=== PATIENT | male | born 1990 | race Caucasian/White ===

== ENCOUNTER 2024-05-03 15:18 | Emergency (ER) | payer MEDICAID, OTHER ==
[~2024-05-03] VITALS: Ht 182.9 cm; Wt 91.9 kg
[~2024-05-03 15:18] MED LIST: [UNRECOGNIZED DRUG - CODE] PO
[2024-05-03 15:29] VITALS: BP 114/62; PULSE 54; RESP 16; TEMP 98.7; O2SAT 99
[2024-05-03 16:33] VITALS: O2SAT 99
[2024-05-03] MEDS: KETOROLAC 30 MG/ML VIAL IVP ONE (16:35)
[2024-05-03 17:04] LABS: BASOPHILS # (AUTO) 0.1 K/uL (0.00-0.22); BASOPHILS % (AUTO) 0.8 % (0.0-2.0); EOSINOPHILS # (AUTO) 0.4 K/uL (0-0.4); EOSINOPHILS % (AUTO) 5.7 % (0.0-4.0); HEMATOCRIT 44.3 % (36-52); LYMPHOCYTES # (AUTO) 2.2 K/uL (2.0-11.5); LYMPHOCYTES % (AUTO) 34.5 % (20.5-51.1); MEAN CORPUSCULAR HEMOGLOBIN 31 pg (27-31); MEAN CORPUSCULAR HGB CONC 34 g/dL (33-37); MEAN CORPUSCULAR VOLUME 90.4 fL (80-94); MONOCYTES # (AUTO) 0.7 K/uL (0.8-1.0); MONOCYTES % (AUTO) 11.4 % (1.7-9.3); NEUTROPHILS % (AUTO) 47.6 % (42.2-75.2); PLATELET COUNT (AUTO) 329 K/uL (140-450); RED CELL DISTRIBUTION WIDTH 13.4 % (11.6-13.7); WHITE BLOOD COUNT (AUTO) 6.4 K/uL (4.8-10.8)
[2024-05-03 17:13] LABS: APPEARANCE,URINE CLEAR (CLEAR); BILIRUBIN,URINE NEGATIVE (NEGATIVE); BLOOD, URINE NEGATIVE (NEGATIVE); COLOR,URINE YELLOW (YELLOW); LEUKOCYTE ESTERASE ,URINE NEGATIVE (NEGATIVE); NITRITE, URINE NEGATIVE (NEGATIVE); PROTEIN,URINE NEGATIVE (NEGATIVE); UGLUCOSE NEGATIVE (NEGATIVE); UROBILINOGEN,URINE 0.2 EU/dL (0.2 - 1)
[2024-05-03 17:17] LABS: ANION GAP 10.1 (8-16); CALCIUM 8.9 mg/dL (8.5-10.1); CARBON DIOXIDE 30.8 mmol/L (21-32); CREATININE 1.2 mg/dL (0.6-1.3); POTASSIUM 3.9 mmol/L (3.5-5.1)
[2024-05-03] MEDS: NACL 0.9% 1,000 ML IV ONE (17:20)
[2024-05-03 17:36] LABS: BILIRUBIN,DIRECT 0.1 mg/dL (0.0-0.3); TOTAL PROTEIN, SERUM 7.4 g/dL (6.4-8.2)
[2024-05-03 18:53] VITALS: O2SAT 99
[2024-05-03] MEDS ORDERED: IBUP-2213 PO (20:07)
[2024-05-03 20:28] VITALS: BP 112/54; PULSE 52; RESP 16; TEMP 98.7; O2SAT 99
== END 2024-05-03 20:27 | disposition home or self-care (01) ==
LOC: MED 15:18
DX: K40.90 Unilateral inguinal hernia, without obstruction or gangrene, not specified as recurrent (principal); J45.909 Unspecified asthma, uncomplicated; Z79.899 Other long term (current) drug therapy; Z88.8 Allergy status to other drugs, medicaments and biological substances
CPT/HCPCS: 36415; 74177; 80048; 80076; 81003; 85025; 96361; 96374; 99285; J1885; J7030; Q9967